=== PATIENT | female | born 1985 | race Caucasian/White ===

== ENCOUNTER 2018-08-31 01:45 | Emergency (ER) | payer OTHER ==
[~2018-08-31] VITALS: Ht 170.2 cm; Wt 111.1 kg
[2018-08-31 01:53] VITALS: BP 150/90
--- NOTE | 2018-08-31 01:53 | NUR ---
PT AMBULATED TO ED BED 12
--- NOTE | 2018-08-31 02:00 | NUR ---
PT PRESENTS TO ED FOR EVALUATION OF ABDOMENAL PAIN X 1HR. PT STATED HX. GALL STONE. AAO X4, GCS 15, ABLE TO SPEAK WITH FULL COPMPLETE SENTNCES. RESPIRATIONS EVEN AND UNLABORED, BL LUNG CLEAR. SKIN WARM/PINK/DRY, + PMAC. ABDOMEN SOFT, NON DISTENDED, ACTIVE BOWEL SOUND X4. STATED RUQ PAIN 8/10. VSS, DR. SHAH MADE AWARE OF PT STATUS. WILL CONTINUE TO MONITOR
[2018-08-31] MEDS ORDERED: INSULIN REGULAR, HUMAN 100 UNIT/ML VIAL IVP ONE ×2 (02:10→03:55)
[2018-08-31] MEDS ORDERED: NACL 0.9% 1,000 ML IV ONE (02:10)
[2018-08-31] MEDS ORDERED: ONDANSETRON 4 MG/2 ML VIAL IVP ONE (02:10)
[2018-08-31] MEDS ORDERED: MORPHINE SULFATE 4 MG/ML SYR IVP ONE ×2 (02:10→04:40)
--- NOTE | 2018-08-31 02:15 | NUR ---
EVALUATING PT AT BEDSIDE
[2018-08-31 02:27] LABS: BASOPHILS % (AUTO) 0.4 % (0.0-2.0); EOSINOPHILS # (AUTO) 0.1 K/uL (0-0.4); HEMATOCRIT 41.8 % (36-48); HEMOGLOBIN 13.2 g/dL (12.0-16.0); LYMPHOCYTES # (AUTO) 2.2 K/uL (2.5-16.5); LYMPHOCYTES % (AUTO) 34.8 % (20.5-51.1); MEAN CORPUSCULAR HEMOGLOBIN 24 pg (27-31); MEAN CORPUSCULAR HGB CONC 32 g/dL (33-37); MONOCYTES # (AUTO) 0.6 K/uL (0.8-1.0); MONOCYTES % (AUTO) 8.8 % (1.7-9.3); NEUTROPHILS # (AUTO) 3.4 K/uL (1.8-7.7); PLATELET COUNT (AUTO) 331 K/uL (140-450); RED CELL DISTRIBUTION WIDTH 16.1 % (11.6-13.7); WHITE BLOOD COUNT (AUTO) 6.3 K/uL (4.8-10.8)
[2018-08-31 02:36] LABS: ANION GAP 11.2 (8-16); CARBON DIOXIDE 28.6 mmol/L (21-32); CREATININE 0.8 mg/dL (0.6-1.3); POTASSIUM 3.8 mmol/L (3.5-5.1)
[2018-08-31 02:39] LABS: APPEARANCE,URINE CLEAR (CLEAR); BILIRUBIN,URINE NEGATIVE (NEGATIVE); BLOOD, URINE NEGATIVE (NEGATIVE); COLOR,URINE YELLOW (YELLOW); LEUKOCYTE ESTERASE ,URINE NEGATIVE (NEGATIVE); NITRITE, URINE NEGATIVE (NEGATIVE); PH,URINE 6.5 (5.0-9.0); UGLUCOSE 3+ (NEGATIVE)
[2018-08-31 02:40] LABS: RBC,URINE 0-5 (RARE) /HPF (0-5); WBC,URINE 0-5 (RARE) /HPF (0-5)
[2018-08-31 02:42] LABS: TOTAL BILIRUBIN 0.4 mg/dL (0.0-1.0)
--- NOTE | 2018-08-31 05:00 | NUR ---
PT SLEEPING, RESPIRATIONS EVEN AND UNLABORED. VSS, NO ACUTE DISTREES AT THIS TIME. WILL CONTINUE TO MONITOR
[2018-08-31 07:18] VITALS: BP 142/82
--- NOTE | 2018-08-31 07:18 | NUR ---
Patient discharged with v/s stable. Written and verbal after care instructions given and explained. Patient alert, oriented and verbalized understanding of instructions. Ambulatory with steady gait. All questions addressed prior to discharge. ID band removed. Patient advised to follow up with PMD. Rx of PEPSID 20 MG, METFORMIN 500 MG given. Patient educated on indication of medication including possible reaction and side effects. Opportunity to ask questions provided and answered.
== END 2018-08-31 07:18 | disposition home or self-care (01) ==
LOC: MED 01:45
DX: K80.80 Other cholelithiasis without obstruction (principal); E11.9 Type 2 diabetes mellitus without complications
CPT/HCPCS: 36415; 76705; 80053; 81001; 81025; 82150; 82948; 83690; 85025; 96374; 96375; 96376; 99284; J1815; J2270; J2405; J7030; Q0092